=== PATIENT | male | born 2000 | race Caucasian/White ===

== ENCOUNTER → 2023-12-15 07:31 | Outpatient (REF) | payer OTHER, BC, SELFPAY | LOC: EMG 07:31 | PROVIDERS: ATTENDING PHYSICIAN Internal Medicine | DX: G56.03 Carpal tunnel syndrome, bilateral upper limbs (principal); A69.20 Lyme disease, unspecified; R20.0 Anesthesia of skin | CPT/HCPCS: 95886; 95911 ==

== ENCOUNTER → 2024-03-01 12:53 | Outpatient (REF) | payer BC, SELFPAY | LOC: HWRAD 12:53 | PROVIDERS: ATTENDING PHYSICIAN Internal Medicine; OTHER PHYSICIAN Allergy & Immunology | DX: D49.1 Neoplasm of unspecified behavior of respiratory system (principal) | CPT/HCPCS: 71260; Q9967 ==

== ENCOUNTER → 2024-10-03 07:20 | Outpatient (REF) | payer BC, SELFPAY | LOC: HWRAD 07:20 | PROVIDERS: ATTENDING PHYSICIAN Internal Medicine Critical Care Medicine; FAMILY PHYSICIAN Internal Medicine; REFERRING PHYSICIAN Allergy & Immunology | DX: R93.89 Abnormal findings on diagnostic imaging of other specified body structures (principal) | CPT/HCPCS: 71250 ==